=== PATIENT | female | born 1985 | race Caucasian/White ===

== ENCOUNTER 2024-05-31 16:21 | Emergency (ER) | payer BC, SELFPAY ==
--- NOTE | ~2024-05-31 | CT_ITS ---
EXAMINATION: CT abdomen pelvis wo con DATE: 05/31/2024 20:13 INDICATION: Flank pain. TECHNIQUE: Computed tomography (CT) of the abdomen and pelvis was performed without intravenous contr ast. Automated exposure control and iterative reconstruction technique were employed. The dose-length product was 343.36 mGy-cm. COMPARISON: CT abdomen and pelvis 08/10/2010 FINDINGS: The visualized portions of the lung bases are clear without pneumonia or pleural effusion. The heart size is normal. No pericardial effusion. The liver, gallbladder, spleen, pancreas, adrenal glands, and left kidney are normal. There is a 2 mm stone in right kidney. There is a 3.8 cm cyst in left ovary. There are no dilated loops of bowel. The appendix is normal. There are no pathologically enlarged lymph nodes. There is no free intraperitoneal fluid. There is moderate thoracic spondylosis. There is severe lower lumbar spondylosis. IMPRESSION: 1. 2 mm nonobstructing right kidney stone. 2. 3.8 cm cyst in left ovary, likely a follicular cyst. Reviewed, dictated and finalized at location A. P MAT[employer]S [employer]ER
--- NOTE | 2024-05-31 18:41 | ED.FEMALEGU ---
HPI - Female Genitourinary General Chief complaint: Urogenital-Female Stated complaint: possible kidney stone/uti Time Seen by Provider: 05/31/24 18:30 Focused HPI: Patient is a 37-year-old female who presents to the ER with complaints of abdominal pain, back pain, UTI symptoms, inability to empty her bladder for the past 2-3 days. She reports she has history of anemia and takes a weight loss injection medication. Patient reports she has felt feverish. She denies , concern for STDs, chest pain, and shortness of breath. GENERAL: Well-appearing, well-nourished, and in no acute distress. HEAD: Normocephalic, atraumatic. CHEST: Clear to auscultation. ?No respiratory distress. HEART: Regular rate and rhythm.? NEURO: ?Alert and oriented x3. Patient screened in triage and initial orders placed.? ?Additional care and disposition to be based upon?diagnostic testing and treatment. Related Data Allergies Allergy/AdvReac Type Severity Reaction Status Date / Time iodine Allergy Unknown Unverified 06/25/18 14:36 [facility] Family History Family History (Updated 04/04/16 @ 13:39 by DOCTOR UNKNOWN) Father Family history of obesity Social History Social History Smoking status: Former smoker Second hand tobacco smoke exposure: No Smoking end date: 07/24/12 Alcohol intake: never Discharge Plan Discharge Follow-up/Referrals: Renita,Soco Lazaro MD [Primary Care Provider] -
[2024-05-31 19:09] VITALS: BP 130/67; PULSE 92; RESP 15; TEMP 36.5; O2SAT 96
--- NOTE | 2024-05-31 19:11 | ED_ITS ---
HPI - Female Genitourinary General Chief complaint: Urogenital-Female <Willie Mike MD - Last Filed: 05/31/24 19:14> Stated complaint: possible kidney stone/uti <Willie Mike MD - Last Filed: 05/31/24 19:14> Time Seen by Provider: 05/31/24 18:30 <Willie Mike MD - Last Filed: 05/31/24 19:14> Source: patient <Willie Mike MD - Last Filed: 05/31/24 19:14> Mode of arrival: ambulatory <Willie Mike MD - Last Filed: 05/31/24 19:14> Limitations: no limitations <Willie Mike MD - Last Filed: 05/31/24 19:14> History of Present Illness HPI Narrative: 38 year old female here for left flank pain reports of subjective fevers but has not taken her temperature. Started a few days ago. History of kidney stones and UTIs. Thought it might be 1 of those. No abdominal pain <Willie Mike MD - Last Filed: 05/31/24 19:14> Related Data Allergies/Adverse reactions: Allergies Allergy/AdvReac Type Severity Reaction Status Date / Time iodine Allergy Unknown Rash Verified 05/31/24 19:11 <Willie Mike MD - Last Filed: 05/31/24 19:14> Review of Systems Review of Systems: All systems reviewed & are unremarkable except as noted in HPI and below <Willie Mike MD - Last Filed: 05/31/24 19:14> [facility] Past Medical History Medical History: Medical History (Updated 06/01/24 @ 00:53 by Glen Lang MD) Morbid obesity <Willie Mike MD - Last Filed: 05/31/24 19:14> Family History Family History: Family History Father Family history of obesity <Willie Mike MD - Last Filed: 05/31/24 19:14> Social History Social History: Social History Smoking status: Former smoker Second hand tobacco smoke exposure: No Smoking end date: 07/24/12 Alcohol intake: never <Willie Mike MD - Last Filed: 05/31/24 19:14> Exam Narrative: Constitutional: Generally well appearing, no acute distress Head: Atraumatic, no deformities. Eyes: Pupils equal, round, and reactive to light. Neck: Supple, no tracheal deviation, no JVD. ENMT: Mucous membranes moist Cardiovascular: S1, S2 auscultated. No murmurs, rubs, or gallops. No S3/S4. Normal Distal pulses. No peripheral edema. Respiratory: Lung sounds equal. No wheezes, rales, or rhonchi. Gastrointestinal: Abdomen was soft and non-tender. Non-distended. No rebound or guarding. Mild tenderness in the left CVA area Genitourinary: Deferred Musculoskeletal: Normal muscle tone and bulk. No obvious deformities or tenderness over extremities. Skin: No rashes. Neurological: Strength 5/5 in extremities. Cranial nerves I-XII grossly intact. Distal sensation intact. Mental Status: Awake, alert and oriented x3. Follows commands <Willie Mike MD - Last Filed: 05/31/24 19:14> Course Course Emergency Course: 22:30 - This patient was signed out to me by previous ED physician, Dr. Mike pending CT abdomen pelvis to rule out stone. 00:30 - STAT Rad interpretation of CT abdomen pelvis demonstrates There is a punctate right renal calcification. No left renal calcifications are noted. No evidence of hydronephrosis. Unremarkable CT scan appearance noted the appendix. No calcified gallstones are seen. There is a possible 4.5 cm left adnexal c yst. UA demonstrates trace ketones with 0-2 rbc's but is not concerning for urinary tract infection. Chemistries demonstrate mildly elevated total bilirubin of 1.4 but is otherwise unremarkable. CBC unremarkable. I suspect the patient's pain may be related to passage of a stone. Will discharge with recommendation for primary care and Urology follow-up. The patient requests a refill of her QSymia. 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 Acute withdrawal of this medication can increase risks of seizures. Will provide the patient with a prescription and at a separate pharmacy. <Glen Lang MD - Last Filed: 06/01/24 00:54> Vital Signs Vital signs: Vital Signs Temperature 97.7 F 05/31/24 19:09 Pulse Rate 92 05/31/24 19:09 Respiratory Rate 15 05/31/24 19:09 Blood Pressure 130/67 05/31/24 19:09 Pulse Oximetry 96 05/31/24 19:09 Temperature 97.8 F 05/31/24 22:34 Pulse Rate 71 05/31/24 22:34 Respiratory Rate 15 05/31/24 22:34 Blood Pressure 121/70 05/31/24 22:34 Pulse Oximetry 100 05/31/24 22:34 <Willie Mike MD - Last Filed: 05/31/24 19:14> Vital Signs Temperature 97.7 F 05/31/24 19:09 Pulse Rate 92 05/31/24 19:09 Respiratory Rate 15 05/31/24 19:09 Blood Pressure 130/67 05/31/24 19:09 Pulse Oximetry 96 05/31/24 19:09 Temperature 97.8 F 05/31/24 22:34 Pulse Rate 71 05/31/24 22:34 Respiratory Rate 15 05/31/24 22:34 Blood Pressure 121/70 05/31/24 22:34 Pulse Oximetry 100 05/31/24 22:34 <Glen Lang MD - Last Filed: 06/01/24 00:54> MDM - Female Genitourinary MDM Narrative Medical decision making narrative: 38-year-old here with left flank pain, urinary frequency and concern for UTI. Exam shows mild tenderness left CVA region. Obtaining CT abdomen pelvis, basic laboratory. concern for UTI or kidney stone. <Willie Mike MD - Last Filed: 05/31/24 19:14> Lab Data Result diagrams: 05/31/24 19:24 05/31/24 19:24 <Willie Mike MD - Last Filed: 05/31/24 19:14> Labs: Lab Results 05/31/24 05/31/24 Range/Units 19:24 19:29 WBC 9.1 (4.5-10.0) K/mm3 RBC 4.86 (4.2-5.4) M/mm3 Hgb 13.7 (12.0-15.0) g/dL Hct 41.3 (37.0-47.0) % MCV 85.0 (80-100) fl MCH 28.2 (26-34) pg MCHC 33.2 (32-36) g/dl RDW 14.2 (11.5-14.5) % Plt Count 269 (150-375) k/mm3 MPV 9.3 (7.4-10.4) fl Immature Gran % (Auto) 0.3 (0-0.5) % Neut % (Auto) 72.5 (45.5-73.1) % Lymph % (Auto) 18.6 (18.3-44.2) % [place] % (Auto) 7.2 (2.6-8.5) % Eos % (Auto) 0.8 (0-4.4) % Baso % (Auto) 0.6 (0.2-1.2) % Lymph # (Auto) 1.68 (0.9-3.2) K/mm3 [place] # (Auto) 0.7 H (0.1-0.6) K/mm3 Eos # (Auto) 0.1 (0-0.3) K/mm3 Baso # (Auto) 0.1 (0.0-0.1) K/mm3 Abs Immat Gran (auto) 0.03 (0.00-0.031) K/mm3 Absolute Neuts (auto) 6.6 (1.3-6.7) K/mm3 Absolute Nucleated RBC 0.000 (0.0-0.012) K/mm3 Nucleated RBC % 0.0 (0.0-0.2) % PT 14.5 (11.1-14.7) Seconds INR 1.1 APTT 28.1 (22.3-36.8) Seconds Sodium 135 L (137-145) mmol/L Potassium 3.5 (3.4-5.0) mmol/L Chloride 106 (98-107) mmol/L Carbon Dioxide 24 (22-30) mmol/L Anion Gap 5 (4-12) mmol/L BUN 6 L (7-17) mg/dL Creatinine 0.70 (0.7-1.0) mg/dL Estim Creat Clear Calc 105 ml/min Estimated GFR > 60 (59 - ) Glucose 83 (65-110) mg/dL Lactic Acid 0.7 (0.7-2.0) mmol/L Calcium 9.5 (8.4-10.2) mg/dL Total Bilirubin 1.4 H (0.2-1.3) mg/dL AST 29 (14-36) U/L ALT 22 (6-35) U/L Alkaline Phosphatase 73 (38-126) U/L Troponin I < 0.012 (0.000-0.034) ng/mL Total Protein 7.0 (6.3-8.2) g/dL Albumin 4.4 (3.5-5.1) g/dL Lipase 96 (23-300) U/L Urine Color Yellow (Yellow) Urine Appearance Clear (Clear) Urine pH 6.0 (5.0-9.0) Ur Specific [place] 1.004 (1.001-1.035) Urine Protein Negative (Negative) mg/dL Urine Glucose (UA) Negative (Negative) mg/dL Urine Ketones Trace H (Negative) mg/dL Ur Blood (Man) Trace (Negative) Urine Nitrate Negative (Negative) Urine Bilirubin Negative (Negative) Urine Urobilinogen 0.2 (<2.0) mg/dL Leukocyte Esterase Rfl Negative (Negative) NADJA/UL Urine RBC 0-2 (0-2) /hpf Urine WBC 0-5 (0-3) /hpf Ur Squamous Epith Cells None seen (Few) /hpf Urine Bacteria None seen /hpf Urine Casts 0-2 POC Urine HCG, Qual Negative (Negative) <Willie Mike MD - Last Filed: 05/31/24 19:14> Lab Results 05/31/24 05/31/24 Range/Units 19:24 19:29 WBC 9.1 (4.5-10.0) K/mm3 RBC 4.86 (4.2-5.4) M/mm3 Hgb 13.7 (12.0-15.0) g/dL Hct 41.3 (37.0-47.0) % MCV 85.0 (80-100) fl MCH 28.2 (26-34) pg MCHC 33.2 (32-36) g/dl RDW 14.2 (11.5-14.5) % Plt Count 269 (150-375) k/mm3 MPV 9.3 (7.4-10.4) fl Immature Gran % (Auto) 0.3 (0-0.5) % Neut % (Auto) 72.5 (45.5-73.1) % Lymph % (Auto) 18.6 (18.3-44.2) % [place] % (Auto) 7.2 (2.6-8.5) % Eos % (Auto) 0.8 (0-4.4) % Baso % (Auto) 0.6 (0.2-1.2) % Lymph # (Auto) 1.68 (0.9-3.2) K/mm3 [place] # (Auto) 0.7 H (0.1-0.6) K/mm3 Eos # (Auto) 0.1 (0-0.3) K/mm3 Baso # (Auto) 0.1 (0.0-0.1) K/mm3 Abs Immat Gran (auto) 0.03 (0.00-0.031) K/mm3 Absolute Neuts (auto) 6.6 (1.3-6.7) K/mm3 Absolute Nucleated RBC 0.000 (0.0-0.012) K/mm3 Nucleated RBC % 0.0 (0.0-0.2) % PT 14.5 (11.1-14.7) Seconds INR 1.1 APTT 28.1 (22.3-36.8) Seconds Sodium 135 L (137-145) mmol/L Potassium 3.5 (3.4-5.0) mmol/L Chloride 106 (98-107) mmol/L Carbon Dioxide 24 (22-30) mmol/L Anion Gap 5 (4-12) mmol/L BUN 6 L (7-17) mg/dL Creatinine 0.70 (0.7-1.0) mg/dL Estim Creat Clear Calc 105 ml/min Estimated GFR > 60 (59 - ) Glucose 83 (65-110) mg/dL Lactic Acid 0.7 (0.7-2.0) mmol/L Calcium 9.5 (8.4-10.2) mg/dL Total Bilirubin 1.4 H (0.2-1.3) mg/dL AST 29 (14-36) U/L ALT 22 (6-35) U/L Alkaline Phosphatase 73 (38-126) U/L Troponin I < 0.012 (0.000-0.034) ng/mL Total Protein 7.0 (6.3-8.2) g/dL Albumin 4.4 (3.5-5.1) g/dL Lipase 96 (23-300) U/L Urine Color Yellow (Yellow) Urine Appearance Clear (Clear) Urine pH 6.0 (5.0-9.0) Ur Specific [place] 1.004 (1.001-1.035) Urine Protein Negative (Negative) mg/dL Urine Glucose (UA) Negative (Negative) mg/dL Urine Ketones Trace H (Negative) mg/dL Ur Blood (Man) Trace (Negative) Urine Nitrate Negative (Negative) Urine Bilirubin Negative (Negative) Urine Urobilinogen 0.2 (<2.0) mg/dL Leukocyte Esterase Rfl Negative (Negative) NADJA/UL Urine RBC 0-2 (0-2) /hpf Urine WBC 0-5 (0-3) /hpf Ur Squamous Epith Cells None seen (Few) /hpf Urine Bacteria None seen /hpf Urine Casts 0-2 POC Urine HCG, Qual Negative (Negative) <Glen Lang MD - Last Filed: 06/01/24 00:54> Discharge Plan Discharge Clinical Impression: Acute abdominal pain in left flank, Nephrolithiasis <Willie Mike MD - Last Filed: 05/31/24 19:14> Patient Disposition: Home, Self-Care <Willie Mike MD - Last Filed: 05/31/24 19:14> Condition: Stable <Willie Mike MD - Last Filed: 05/31/24 19:14> Instructions: Antibiotic Form, Kidney Stones (ED), Flank Pain (ED) <Willie Mike MD - Last Filed: 05/31/24 19:14> Additional Instructions: You were seen in the emergency department. Your lab shows changes consistent with passage of a kidney stone. A CT scan did not show 1 left, however there is a tiny stone noted in the right kidney. I recommend Tylenol/ ibuprofen as needed for pain as well as follow-up with your primary care doctor. If you develop new or worsening abdominal pain, abdominal pain with fevers, persistent vomiting, or if you have other emergent concerns for life, limb, or eyesight, return to the emergency department. <Willie Mike MD - Last Filed: 05/31/24 19:14> Patient Language: Turkish <Willie Mike MD - Last Filed: 05/31/24 19:14> Prescriptions: New Qsymia 7.5-46 mg capsule, ER multiphase 24 hr 1 cap PO DAILY Qty: 30 0RF <Willie Mike MD - Last Filed: 05/31/24 19:14> Follow-up/Referrals: Suleimanjacey,Soco Lazaro MD [Non-Staff] - 2 Weeks Alan Fermin MD [Physician] - 2 Weeks <Willie Mike MD - Last Filed: 05/31/24 19:14> Time of Disposition: 00:53 <Willie Mike MD - Last Filed: 05/31/24 19:14> 00:53 <Glen Lang MD - Last Filed: 06/01/24 00:54> Sign Out Sign Out Data: Patient Sign Out occurred on 05/31/24 at 22:21. Patient's care was discussed, and care was transferred from Willie Mike MD to Glen Lang MD. <Willie Mike MD - Last Filed: 05/31/24 19:14>
[2024-05-31] MEDS: SODIUM CHLORIDE 0.9% IV 1,000 ML 999 ML IV CONT (19:17)
[2024-05-31] MEDS: KETOROLAC 30 MG/ML VIAL (*BKC) IV PUSH (19:18)
[2024-05-31 19:31] LABS: BEDSIDEPREGUCG Negative (Negative)
[2024-05-31 19:35] LABS: Basophils Absolute Auto 0.1 K/mm3 (0.0-0.1); Basophils Percent Auto 0.6 % (0.2-1.2); Eosinophils Absolute Auto 0.1 K/mm3 (0-0.3); Eosinophils Percent Auto 0.8 % (0-4.4); Hematocrit 41.3 % (37.0-47.0); Hemoglobin 13.7 g/dL (12.0-15.0); Immature Granulocyte Absolute 0.03 K/mm3 (0.00-0.031); Immature Granulocyte Percent A 0.3 % (0-0.5); Lymphocytes Absolute Auto 1.68 K/mm3 (0.9-3.2); Lymphocytes Percent Auto 18.6 % (18.3-44.2); Mean Corpuscular HGB Conc 33.2 g/dl (32-36); Mean Corpuscular Hemoglobin 28.2 pg (26-34); Mean Platelet Volume 9.3 fl (7.4-10.4); Monocytes Absolute Auto 0.7 K/mm3 (0.1-0.6); Monocytes Percent Auto 7.2 % (2.6-8.5); Neutrophils Absolute Auto 6.6 K/mm3 (1.3-6.7); Neutrophils Percent Auto 72.5 % (45.5-73.1); Platelet Count Result 269 k/mm3 (150-375); Red Blood Count 4.86 M/mm3 (4.2-5.4); Red Cell Distribution Width 14.2 % (11.5-14.5); White Blood Count 9.1 K/mm3 (4.5-10.0)
[2024-05-31 19:39] LABS: Add Urine Microscopic? YES; Appearance Urine Clear (Clear); Bacteria Urine None Seen /hpf; Bilirubin Urine Negative (Negative); Blood Urine Trace (Negative); Color Urine Yellow (Yellow); Glucose Urine UA Negative (Negative); Ketones Urine Trace mg/dL (Negative); Leukocyte Esterase Ur Negative LEU/UL (Negative); Nitrate Urine Negative (Negative); Non Pathogenic Casts 0-2; Protein Urine Negative (Negative); RBC Urine 0-2 /hpf (0-2); Specific Grav Ur 1.004 (1.001-1.035); Squamous Epithelial Cell Urine None Seen /hpf (Few); Urobilinogen Urine 0.2 mg/dL (<2.0); WBC Urine 0-5 /hpf (0-3)
[2024-05-31 19:43] LABS: Alanine Aminotransferase 22 U/L (6-35); Albumin Level 4.4 g/dL (3.5-5.1); Alkaline Phosphatase 73 U/L (38-126); Anion Gap 5 mmol/L (4-12); Aspartate Amino Transferase 29 U/L (14-36); Bilirubin,Total 1.4 mg/dL (0.2-1.3); Blood Urea Nitrogen 6 mg/dL (7-17); Calcium 9.5 mg/dL (8.4-10.2); Carbon Dioxide 24 mmol/L (22-30); Chloride 106 mmol/L (98-107); Estimated CRCL calculation 105 ml/min; Estimated Glomerular Filt Rate > 60; Glucose 83 mg/dL (65-110); INR 1.1; Lipase 96 U/L (23-300); Potassium 3.5 mmol/L (3.4-5.0); Prothrombin Time 14.5 Seconds (11.1-14.7); Sodium 135 mmol/L (137-145)
[2024-05-31 19:44] LABS: Lactic Acid Reflex 0.7 mmol/L (0.7-2.0); Partial Thromboplastin Time 28.1 Seconds (22.3-36.8)
[2024-05-31 20:14] LABS: Troponin I < 0.012 ng/mL (0.000-0.034)
[2024-05-31 20:57] VITALS: BP 124/86; PULSE 88; RESP 18; O2SAT 99
[2024-05-31 22:34] VITALS: BP 121/70; PULSE 71; RESP 15; TEMP 36.6; O2SAT 100
[2024-06-01 01:13] VITALS: BP 126/74; PULSE 69; RESP 16; O2SAT 98
== END 2024-06-01 01:13 | disposition home or self-care (01) ==
PROVIDERS: Registered Nurse; Emergency Provider Preventive Medicine Aerospace Medicine
DX: R10.9 Unspecified abdominal pain (principal); N20.0 Calculus of kidney; Z87.891 Personal history of nicotine dependence; E66.9 Obesity, unspecified; Z68.33 Body mass index [BMI] 33.0-33.9, adult
CPT/HCPCS: 36415; 74176; 80053; 81001; 81025; 83605; 83690; 84484; 85025; 85610; 85730; 96361; 96374; 99284; J1885; J7030

== ENCOUNTER 2024-10-10 09:05 | Outpatient (CLI) | payer BC, SELFPAY ==
--- OUTSIDE RECORDS SUMMARY | 2024-10-10 09:26 | XMS_ITS | Clinical Summary ---
Author Organization [facility] [employer] Address [address] [address] Care Team Providers Care Forming Yardage Control Operator Name Role Phone Tamanna Reza APRN-SUPPLIER SPECIALIST Primary Care Provider Source Comments [facility] [employer],non-owned Affiliates and Associated Physician Practices is amultiple site organization consisting of ambulatory clinics and hospital sitesin [place], [place], [place] and [place]. This disclosure is being madepursuant to the Care Everywhere program and may not contain all information available regarding this patient. Last updated 18.[facility] [employer] Allergies No known active allergies Medications * Be aware that medications may not be up to date on this document. Alwaysverify current medications with the patient. Medication Sig Dispensed Refills Start Date End Date Status sertraline (ZOLOFT) 50 MG tablet 75 mg 05/31/2021 Active etonogestrel (NEXPLANON) 68 MG implant Active Family History Medical History Relation Name Comments Cancer - Breast Paternal Grandmother Cancer - Breast Sister Relation Name Status Comments Paternal Grandmother Sister Social History Tobacco Use Types Packs/Day Years Used Date Smoking Tobacco: Never Assessed Sex and Gender Information Value Date Recorded Sex Assigned at Not on file Gender Identity Not on file Sexual Orientation Not on file Last Filed Vital Signs Vital Sign Reading Time Taken Comments Blood Pressure - - Pulse - - Temperature 36.8 C (98.2 F) 07/01/2021 1:01 PM CIVIL ESTIMATOR Respiratory Rate - - Oxygen Saturation - - Inhaled Oxygen Concentration - - Weight - - Height - - Body Mass Index - - Plan of Treatment Health Maintenance Due Date Last Done Comments PAP SMEAR 1985 HIV SCREENING 2000 DTAP/TDAP/TD VACCINES (1 - Tdap) 2004 HEPATITIS B VACCINE (1 of 3 - 19+ 3-dose series) 2004 COVID-19 VACCINE (1 - 2023-2 5 season) 2024 INFLUENZA VACCINE (#1) 2024 , 07/09/2021, 05/13/2018 DEPRESSION SCREENING 07/24/2024 ZOSTER VACCINE (1 of 2) 2035 HEPATITIS C SCREENING Completed 09/13/2022 HIB VACCINE Aged Out No longer eligi ble based on patient's age to complete this topic HPV VACCINE Aged Out No longer eligi ble based on patient's age to complete this topic MENINGOCOCCAL (Group B) VACCINE SHARED DECISION-MAKING Aged Out No longer eligible based on patient's age to complete this topic MENINGOCOCCAL GROUPS A/C/Y/W VACCINE Aged Out No longer eligible b ased on patient's age to complete this topic PNEUMOCOCCAL VACCINE Aged Out No long er eligible based on patient's age to complete this topic Care Teams Forming Yardage Control Operator Relationship Specialty Start Date End Date Tamanna Reza, SALES ENABLEMENT MANAGER-SUPPLIER SPECIALIST [address] [place] [id number] PCP - General Nurse Practitioner 05/19/21
--- OUTSIDE RECORDS SUMMARY | 2024-10-10 09:26 | XMS_ITS | Clinical Summary ---
Author Organization [facility] [place] Address [address] [place] [address] Phone Care Team Providers Care Theatre Professor Name Role Phone Unavailable Primary Care Provider Unavailabl e Social History Tobacco Use Types Packs/Day Years Used Date Smoking Tobacco: Never Assessed Comments Unknown Sex and Gender Information Value Date Recorded Sex Assigned at Not on file Legal Sex Female 3:21 PM CDT Gender Identity Not on file Sexual Orientation Not on file Plan of Treatment Health Maintenance Due Date Last Done Comments DTAP/TDAP/TD VACCINES (1 - Tdap) 2004 HEPATITIS B VACCINES (1 of 3 - 19+ 3-dose series) 2004 PAP SMEAR 2015 INFLUENZA VACCINE (#1) 2024 HPV VACCINES Aged Out No longer eligi ble based on patient's age to complete this topic PNEUMOCOCCAL VACCINE 0-49 YEARS Aged Out No longer eligible based on patient's age to complete this topic
--- OUTSIDE RECORDS SUMMARY | 2024-10-10 09:26 | XMS_ITS | Clinical Summary ---
Author Organization [facility] Address [address] [place] [address] Care Team Providers Care Waterfront Director Name Role Phone Tamanna Reza Primary Care Provider [phone] Allergies No known active allergies Medications spironolactone (ALDACTONE) 100 MG tablet 4 Active tretinoin (RETIN-A) 0.025 % cream APPLY TOPICALLY TO ACNE PRONE AREAS EVERY EVENING 3 Active busPIRone (BUSPAR) 10 MG tabletIndicatio ns:Anxiety Take one half tablet once daily for one week, then increase to one tablet twice daily 60 tablet 5 4 Active sertraline (ZOLOFT) 100 MG tabletIndicatio ns:Anxiety,Mode rate episode of recurrent major depressive disorder (CMS/HCC) Take 1 tablet (100 mg total) by mouth daily. 90 tablet 1 4 Active hydrOXYzine (ATARAX) 25 MG tabletIndicatio ns:Anxiety TAKE ONE TABLET BY MOUTH DAILY 30 tablet 4 Active Active Problems Problem Noted Date Diagnosed Date Anxiety 04/28/2021 Moderate episode of recurrent major depressive d isorder 04/28/2021 Resolved Problems Problem Noted Date Diagnosed Date Resolved Date BMI 39.0-39.9,adult 04/28/2021 09/01/19 23 Encounters Date Type Department Care Team Description 08/15/2024 MyChart Message Enc [facility] Family & Internal Medicine [address] [phone] Tamanna Reza APNP Buspar and hydrozizine from Last 3 Months Immunizations Name Administration Dates Next Due Fluzone 6 Months+ Quad (0.5 mL Prefilled Syringe ) 09/01/2022 Influenza Adult (Generic) 07/09/2021,05/13/2018 Tdap (Adacel) 03/21/2015 Tdap (Boostrix) 05/13/2018 Family History Medical History Relation Comments Anxiety Mother Depression Mother Hyperlipidemia Mother Hypertension Mother Thyroid Disease Mother Breast Cancer Sister age 44 Relation Status Comments Father Alive Mother Alive Sister Social History Tobacco Use Types Packs/Day Years Used Date Smoking Tobacco: Never Passive Smoke Exposure: Past Smokeless Tobacco: Never Tobacco Cessation:Counseling Given: No Alcohol Use Standard Drinks/Week Comments Never 0 (1 standard drink = 0.6 oz pur e alcohol) PHQ-2 Answer Date Recorded Patient Health Questionnaire-2 Score 3 10/17/2023 Comments No Sex and Gender Information Value Date Recorded Sex Assigned at Not on file Legal Sex Female 9:44 AM CDT Gender Identity Not on file Sexual Orientation Not on file Last Filed Vital Signs Vital Sign Reading Time Taken Comments Blood Pressure 102/80 06/11/2024 4:18 PM LOG DRIVER Pulse 86 06/11/2024 4:18 PM LOG DRIVER Temperature 36.7 C (98 F) 06/11/2024 4:18 PM LOG DRIVER Respiratory Rate 16 06/11/2024 4:18 PM LOG DRIVER Oxygen Saturation 99% 06/11/2024 4:18 PM LOG DRIVER Inhaled Oxygen Concentration - - Weight 91.6 kg (201 lb 14.4 oz) 06/11/2024 4:18 PM LOG DRIVER Height 165.1 cm (5' 5 ) 06/11/2024 4:18 PM LOG DRIVER Body Mass Index 33.6 06/11/2024 4:18 PM LOG DRIVER Plan of Treatment Health Maintenance Due Date Last Done Comments Cervical Cancer Screening Pa p Smear (Age 30 to 64) Every 3 Years 1985 Hepatitis B Vaccines (1 of - + 3-dose series) 2004 Cervical Cancer Screening Pa p with HPV Testing (Age 30 to 64) Every 5 Years 2015 COVID-19 Vaccine (2023-2 5 season) 2024 07/09/2021, 10/17/2020, 09/24/2020 Influenza Adult (#1) 2024 09/01/2022, 07/09/2021, 05/13/2018 PHQ-2 (Physician [place]) 07/24/2024 10/17/2023 Annual Physical 10/16/2024 10/17/2023, 09/01/2022 Cervical Cancer Screening with HPV 10/16/2024 Postponed from 09/09 (Awaiting Documentation) DTaP, Tdap and Td Vaccines ( 3 - Td or Tdap) 05/13/2028 05/13/2018, 03/21/2015 Hepatitis C Completed 09/13/2022 HPV Vaccines Aged Out No longer eligi ble based on patient's age to complete this topic Meningococcal B Vaccine Aged Out No l onger eligible based on patient's age to complete this topic Meningococcal Vaccine Aged Out No jamil anant eligible based on patient's age to complete this topic Pneumococcal Vaccine: Pediatrics (0 to 5 Years) and At-Risk Patients (6 to 64 Years) Aged Out No longer eligible b ased on patient's age to complete this topic RSV Immunizations Under 20 Months Aged Out No longer eligible b ased on patient's age to complete this topic Procedures Procedure Name Priority Date/Time Associated Diagnosis Comments HEPATITIS C ANTIBODY Routine 09/13/2022 10:14 AM LOG DRIVER Need for hepatitis C screening test from Last 3 Months or Most Recently Relevant to Health Maintenance Results * HEPATITIS C AB ([facility] ONLY) (09/13/2022 10:14 AM LOG DRIVER) HEPATITIS C AB NON-REACTI VE NON-REACT GLORIA 09/13/2022 6:29 PM LOG DRIVER [facility] Comment: ANTIBODIES TO HCV NOT DETECTED. DOES NOT EXCLUDE THE POSSIBILITY OF EXPOSURE TO HCV. 09/13/2022 10:1 4 AM LOG DRIVER Tamanna [facility] Final Resul t [facility] [address] [place] [address], [id number] from Last 3 Months or Most Recently Relevant to Health Maintenance Insurance [facility] Care Teams Waterfront Director Relationship Specialty Start Date End Date Tamanna Reza APNP [address] [place] [address] PCP - General NURSE PRACTITIONER 04/28/21
--- OUTSIDE RECORDS SUMMARY | 2024-10-10 09:27 | XMS_ITS | Encounter Summary ---
Author Organization [facility] Address [address] [place] [address] Care Team Providers Care Second Miller Name Role Phone Tamanna Reza Primary Care Provider [phone] Encounter Details Date Type Department Care Team (Late st Contact Info) Description 02/22/2024 Authernativet Message Enc [facility] Family Medicine - [place] [address] [facility], [address] [place] [phone] [place] [address] [address] Qsymia Social History Tobacco Use Types Packs/Day Years Used Date Smoking Tobacco: Never Passive Smoke Exposure: Past Smokeless Tobacco: Never Alcohol Use Standard Drinks/Week Comments Never 0 (1 standard drink = 0.6 oz pur e alcohol) PHQ-2 Answer Date Recorded Patient Health Questionnaire-2 Score 3 10/17/2023 Comments No Sex and Gender Information Value Date Recorded Sex Assigned at Not on file Legal Sex Female 9:44 AM CDT Gender Identity Not on file Sexual Orientation Not on file documented as of this encounter Plan of Treatment Not on file documented as of this encounter Visit Diagnoses Not on filedocumented in this encounter Additional Health Concerns Assessment Noted Time PHQ-9 Depression Total Score: 10 024 8:32 AM CDT documented as of this encounter Care Teams Second Miller Relationship Specialty Start Date End Date Tamanna Reza APNP [address] [place] [address] PCP - General NURSE PRACTITIONER 04/28/21 documented as of this encounter
--- OUTSIDE RECORDS SUMMARY | 2024-10-10 09:27 | XMS_ITS | Encounter Summary ---
Author Organization [facility] Address [address] [place] [address] Care Team Providers Care Network Specialist Name Role Phone Tamanna Reza Primary Care Provider [phone] Encounter Details Date Type Department Care Team (Late st Contact Info) Description 06/03/2024 goActt Message Enc [facility] Family Medicine - [place] [address] [facility], [address] [place] [phone] [place] [address] [address] Medication and kidney stones Social History Tobacco Use Types Packs/Day Years [...] documented as of this encounter Care Teams Network Specialist Relationship Specialty Start Date End Date Tamanna Reza APNP [address] [place] [address] PCP - General NURSE PRACTITIONER 04/28/21 documented as of this encounter
--- OUTSIDE RECORDS SUMMARY | 2024-10-10 09:27 | XMS_ITS | Encounter Summary ---
Author Organization [facility] Address [address] [place] [address] Care Team Providers Care Accredited Farm Manager Name Role Phone Tamanna Reza Primary Care Provider [phone] Encounter Details Date Type Department Care Team (Late st Contact Info) Description 04/16/2024 TNCt Message Enc [facility] Family Medicine - [place] [address] [facility], [address] [place] [phone] [place] [address] [address] Qysmia Social History Tobacco Use Types Packs/Day Years [...] documented as of this encounter Care Teams Accredited Farm Manager Relationship Specialty Start Date End Date Tamanna Reza APNP [address] [place] [address] PCP - General NURSE PRACTITIONER 04/28/21 documented as of this encounter
--- OUTSIDE RECORDS SUMMARY | 2024-10-10 09:27 | XMS_ITS | Encounter Summary ---
Author Organization [facility] Address [address] [place] [address] Care Team Providers Care Computer Information Systems Instructor Name Role Phone Tamanna Reza BILL Primary Care Provider [phone] Encounter Details Date Type Department Care Team (Late st Contact Info) Description 05/29/2024 Vidmindt Message Enc [facility] Family Medicine - [place] [address] [facility], [address] [place] [phone] [place] [address] [address] Appt today Social History Tobacco Use Types Packs/Day Years [...] on file documented as of this encounter Progress Notes * Marga Gonzalez MA - 05/30/2024 2:30 PM CST Called patient and scheduled for 06/05/2024 @ 10:20 for virtual visit. Patient is needing a refill on Qsymia GANG SUPERVISOR documented in this encounter Plan of Treatment Not on file documented as of this encounter Visit Diagnoses Diagnosis Class 2 severe obesity due to excess calories with serious comorbidity and body mass index (BMI) of 39.0 to 39.9 in adult (CMS/[facility]) documented in this encounter Additional Health Concerns Assessment Noted Time PHQ-9 Depression Total Score: 10 024 8:32 AM CDT documented as of this encounter Care Teams Computer Information Systems Instructor Relationship Specialty Start Date End Date Tamanna Reza APNP [address] [place] [address] PCP - General NURSE PRACTITIONER 04/28/21 documented as of this encounter
--- OUTSIDE RECORDS SUMMARY | 2024-10-10 09:27 | XMS_ITS | Encounter Summary ---
Author Organization [facility] Address [address] [place] [address] Care Team Providers Care Telegraph Service Rater Name Role Phone Tamanna Reza BILL Primary Care Provider [phone] Encounter Details Date Type Department Care Team (Late st Contact Info) Description 03/21/2024 Playnatic Entertainmentt Message Enc [facility] Family Medicine - [place] [address] [facility], [address] [place] [phone] [place] [address] [place] [address] Qsymia Social History Tobacco Use Types Packs/Day [...] as of this encounter Progress Notes * Anaid Jovel MA - 03/26/2024 8:08 AM CDTFrom: Candy Luis Enrique Sent: 03/25/2024 9:54 AM CDT To: Marissa Siddiqui Nurse Subject: Qsymia Please send scrip to Mike Guevara documented in this encounter Plan of Treatment Not on file documented as of this encounter Visit Diagnoses Not on filedocumented in this encounter Additional Health Concerns Assessment Noted Time PHQ-9 Depression Total Score: 10 024 8:32 AM CDT documented as of this encounter Care Teams Telegraph Service Rater Relationship Specialty Start Date End Date Tamanna Reza APNP [address] [place] [address] PCP - General NURSE PRACTITIONER 04/28/21 documented as of this encounter
--- OUTSIDE RECORDS SUMMARY | 2024-10-10 09:27 | XMS_ITS | Encounter Summary ---
Author Organization [facility] Address [address] [place] [address] Care Team Providers Care Furnace Filler Name Role Phone Tamanna Reza Primary Care Provider [phone] Encounter Details Date Type Department Care Team (Late st Contact Info) Description 12/05/2023 SetJamt Message Enc [facility] Family Medicine - [place] [address] [facility], [address] [place] [phone] [place] [address] [address] Qsymia Social History Tobacco Use Types Packs/Day [...] documented as of this encounter Care Teams Furnace Filler Relationship Specialty Start Date End Date Tamanna Reza APNP [address] [place] [address] PCP - General NURSE PRACTITIONER 04/28/21 documented as of this encounter
[2024-10-10 09:30] LABS: Hematocrit 41.6 % (37.0-47.0); Hemoglobin 13.5 g/dL (12.0-15.0)
== END 2024-10-10 09:06 | disposition home or self-care (01) ==
LOC: ANHSURGERY 09:08
PROVIDERS: PCP Registered Nurse; Visit Provider Obstetrics & Gynecology
DX: Z01.818 Encounter for other preprocedural examination (principal); O02.1 Missed abortion
CPT/HCPCS: 36415; 85014; 85018

== ENCOUNTER 2024-10-11 00:14 | Day surgery (SDC) | payer BC, SELFPAY ==
--- NOTE | 2024-10-08 12:56 | PM.IMHP ---
H&P: HPI History of Present Illness Date/Time: 10/08/24 12:56 Chief Complaint: 1st trimester missed A/B Narrative: 39-year-old female 1st trimester with a missed A/B submitted for suction dilatation curettage risks and benefits reviewed in full Review of Systems Review of Systems: All systems reviewed & are unremarkable except as noted in HPI and below PMFSH Past Medical History Medical History Morbid obesity Family History Family History Father Family history of obesity Social History Social History Smoking status: Former smoker Second hand tobacco smoke exposure: No Smoking end date: 07/24/12 Alcohol intake: never Meds Home Medications and Allergies Home Medications ?Medication ?Instructions ?Recorded ?Confirmed ?Type phentermine 7.5 mg-topiramate ER 1 cap PO DAILY #30 caps 06/01/24 Rx 46 mg capsule,ext.release 24hr mphase (Qsymia) Allergies Allergy/AdvReac Type Severity Reaction Status Date / Time iodine Allergy Unknown Rash Verified 05/31/24 19:11 Exam Const: General: cooperative, healthy appearing and comfortable Nutritional Appearance: average body habitus Orientation/consciousness: oriented to person, oriented to place and oriented to time HENMT: Head: normal to inspection Chest: Chest palpation & inspection: normal inspection of the chest Resp: Effort & Inspection: normal respiratory effort Cardio: Rate: regular rate Rhythm: regular rhythm Heart sounds: S1 normal heart sound present and S2 normal heart sound present GI: Inspection: normal to inspection : External Female Exam: normal external appearance Speculum Exam - Vagina: normal appearance of the vagina Speculum Exam - Cervix: normal appearance of the cervix Bimanual exam- vagina & uterus: enlarged Bimanual Exam- Adnexa, other: normal adnexae Assessment and Plan Assessment and plan (1) Missed : Code(s): O02.1 - Missed Status: Acute Plan Proceed with suction dilatation and curettage
[2024-10-08 13:59] VITALS: BMI 34.0
--- NOTE | 2024-10-08 14:15 | PC.NURSE ---
Report to the Outpatient Waiting Room, entrance under the green pavilion located off [facility], at time 1100 on date 10/11/2024. Planned Procedure Time:1300.? Time changes happen often and if your time is changed the preop area will call you the afternoon before. - You and your visitor will be asked to self-screen and do not enter if you have any COVID symptoms. Please call surgeon if you need to reschedule. - A mask is optional within the hospital at this time. Patients may have clear liquids (water, carbonated beverages, clear teas, apple juice) until 3 hours prior to surgery with a maximum of 20 ounces. - No food from midnight until time of surgery and no smoking, or chewing tobacco (or any form of nicotine). No chewing gum, candy or mints. Take only the following medications with a SIP of water on the morning of surgery: Buspar DO NOT STOP ANY OF YOUR OTHER PRESCRIPTION MEDICATIONS PRIOR TO SURGERY EXCEPT THE FOLLOWING Hold all vitamins and supplements for 3 days per anesthesiologist. Medications to discontinue per physician: N/A Please no make-up, nail pakistani, hairspray, perfume, deodorant, or body powder the day of surgery.? No jewelry (including any body piercings) or valuables the day of surgery, leave them at home.? Please take a shower or bath the night before, or the morning of, surgery with an antibacterial soap.? Wear comfortable, loose fitting clothing.? Children are encouraged to wear pajamas. - Jewelry must be removed prior to entering the operating room.? Rings and piercings that are not removed may be cut off. - The hospital will not accept responsibility for valuables.? - Please leave all valuables, including medications, at home the day of surgery. If you are going home after surgery, a licensed national van truck driver must drive you home.? - NO public transportation without another adult if you receive anesthesia. - We recommend that an adult stay with you for 24 hours following discharge. - We also recommend that you do not drive, make important decision, drink alcoholic beverages, or take any drugs that were not prescribed by your health care provider for at least 24 hours after your discharge time. Follow any additional instructions given to you from your surgeon. Telephone instructions given to ____patient and asked if any additional questions and then verbalized understanding. Patient advised to call surgeon office or pre surgery nurse liaison [phone] if any additional questions.
--- OUTSIDE RECORDS SUMMARY | 2024-10-11 00:17 | XMS_ITS | Clinical Summary ---
Author Organization [facility] Address [address] [place] [address] Care Team Providers Care Linux Admin Name Role Phone Tamanna Reza Primary Care Provider [phone] Allergies No known active allergies Medications spironolactone [...] Care Team Description 08/15/2024 MyChart Message Enc [facility] Family & Internal Medicine [address] [phone] Tamanna Reza APNP Buspar and hydrozizine from [...] Comments Blood Pressure 102/80 06/11/2024 4:18 PM SAFETY TECHNICIAN Pulse 86 06/11/2024 4:18 PM SAFETY TECHNICIAN Temperature 36.7 C (98 F) 06/11/2024 4:18 PM SAFETY TECHNICIAN Respiratory Rate 16 06/11/2024 4:18 PM SAFETY TECHNICIAN Oxygen Saturation 99% 06/11/2024 4:18 PM SAFETY TECHNICIAN Inhaled Oxygen Concentration - - Weight 91.6 kg (201 lb 14.4 oz) 06/11/2024 4:18 PM SAFETY TECHNICIAN Height 165.1 cm (5' 5 ) 06/11/2024 4:18 PM SAFETY TECHNICIAN Body Mass Index 33.6 06/11/2024 4:18 PM SAFETY TECHNICIAN Plan of Treatment Health Maintenance Due Date [...] (#1) 2024 09/01/2022, 07/09/2021, 05/13/2018 PHQ-2 (Physician [place]) 07/24/2024 10/17/2023 Annual Physical 10/16/2024 10/17/2023, 09/01/2022 [...] HEPATITIS C ANTIBODY Routine 09/13/2022 10:14 AM SAFETY TECHNICIAN Need for hepatitis C screening test from Last 3 Months or Most Recently Relevant to Health Maintenance Results * HEPATITIS C AB ([facility] ONLY) (09/13/2022 10:14 AM SAFETY TECHNICIAN) HEPATITIS C AB NON-REACTI VE NON-REACT [place]ORIA 09/13/2022 6:29 PM SAFETY TECHNICIAN [facility] Comment: ANTIBODIES TO HCV NOT DETECTED. DOES NOT EXCLUDE THE POSSIBILITY OF EXPOSURE TO HCV. 09/13/2022 10:1 4 AM SAFETY TECHNICIAN Tamanna [facility] Final Resul t [facility] [address] [place] [address], [id number] from Last 3 Months or Most Recently Relevant to Health Maintenance Insurance [facility] Care Teams Linux Admin Relationship Specialty Start Date End Date Tamanna Reza APNP [address] [place] [address] PCP - General NURSE PRACTITIONER 04/28/21
--- OUTSIDE RECORDS SUMMARY | 2024-10-11 00:17 | XMS_ITS | Encounter Summary ---
Author Organization [facility] Address [address] [place] [address] Care Team Providers Care Purchasing And Fiscal Clerk Name Role Phone Tamanna Reza Primary Care Provider [phone] Encounter Details Date Type Department Care Team (Late st Contact Info) Description 12/05/2023 StoredIQt Message Enc [facility] Family Medicine - [place] [address] [facility], [address] [place] [phone] [place] [address] [address] Qsymia Social History Tobacco Use Types Packs/Day [...] documented as of this encounter Care Teams Purchasing And Fiscal Clerk Relationship Specialty Start Date End Date Tamanna Reza APNP [address] [place] [address] PCP - General NURSE PRACTITIONER 04/28/21 documented as of this encounter
--- OUTSIDE RECORDS SUMMARY | 2024-10-11 00:17 | XMS_ITS | Encounter Summary ---
Author Organization [facility] Address [address] [place] [address] Care Team Providers Care Mine Car Mechanic Name Role Phone Tamanna Reza Primary Care Provider [phone] Encounter Details Date Type Department Care Team (Late st Contact Info) Description 02/22/2024 NewGalexy Servicest Message Enc [facility] Family Medicine - [place] [address] [facility], [address] [place] [phone] [place] [address] [address] Qsymia Social History Tobacco Use Types Packs/Day [...] documented as of this encounter Care Teams Mine Car Mechanic Relationship Specialty Start Date End Date Tamanna Reza APNP [address] [place] [address] PCP - General NURSE PRACTITIONER 04/28/21 documented as of this encounter
--- OUTSIDE RECORDS SUMMARY | 2024-10-11 00:17 | XMS_ITS | Clinical Summary ---
Author Organization [facility] Address [address] [place] [address] Phone Care Team Providers Care Power Originator Name Role Phone Unavailable Primary Care Provider [...]
--- OUTSIDE RECORDS SUMMARY | 2024-10-11 00:17 | XMS_ITS | Clinical Summary ---
Author Organization [facility] [employer] [facility] [employer] Address [address] [place] [address] Care Team Providers Care Db2 Developer Name Role Phone Tamanna Reza APRN-TRANSCRIPTION COORDINATOR Primary Care Provider Source Comments [facility] [employer],non-owned Affiliates and Associated Physician Practices is amultiple site organization consisting of ambulatory clinics and hospital sitesin [place], [place], [place] and [place]. This disclosure is being madepursuant to the Care Everywhere program and may not contain all information available regarding this patient. Last updated 18.[facility] [employer] Allergies No known active allergies Medications * [...] 36.8 C (98.2 F) 07/01/2021 1:01 PM WATER AEROBICS INSTRUCTOR Respiratory Rate - - Oxygen Saturation - [...] age to complete this topic Care Teams Db2 Developer Relationship Specialty Start Date End Date Tamanna Reza, HEPATOLOGIST-TRANSCRIPTION COORDINATOR [address] [place] [address] PCP - General Nurse Practitioner 05/19/21
--- OUTSIDE RECORDS SUMMARY | 2024-10-11 00:17 | XMS_ITS | Encounter Summary ---
Author Organization [facility] Address [address] [place] [address] Care Team Providers Care Diamond Die Polisher Name Role Phone Tamanna Reza Primary Care Provider [phone] Encounter Details Date Type Department Care Team (Late st Contact Info) Description 06/03/2024 Arlettiet Message Enc [facility] Family Medicine - [place] [address] [facility], [address] [place] [phone] [place] [address] [address] Medication and kidney stones Social History Tobacco [...] documented as of this encounter Care Teams Diamond Die Polisher Relationship Specialty Start Date End Date Tamanna Reza APNP [address] [place] [address] PCP - General NURSE PRACTITIONER 04/28/21 documented as of this encounter
--- OUTSIDE RECORDS SUMMARY | 2024-10-11 00:17 | XMS_ITS | Encounter Summary ---
Author Organization [facility] Address [address] [place] [address] Care Team Providers Care Mobile Sales Expert Name Role Phone Tamanna Reza BILL Primary Care Provider [phone] Encounter Details Date Type Department Care Team (Late st Contact Info) Description 05/29/2024 Cooledge Lightingt Message Enc [facility] Family Medicine - [place] [address] [facility], [address] [place] [address] [place] [address] [address] Appt today Social History Tobacco Use Types [...] Patient is needing a refill on Qsymia JOINER documented in this encounter Plan of Treatment Not on file documented as of this encounter Visit Diagnoses Diagnosis Class 2 severe obesity due to excess calories with serious comorbidity and body mass index (BMI) of 39.0 to 39.9 in adult (CMS/[facility]) documented in this encounter Additional Health Concerns Assessment Noted Time PHQ-9 Depression Total Score: 10 024 8:32 AM CDT documented as of this encounter Care Teams Mobile Sales Expert Relationship Specialty Start Date End Date Tamanna Reza APNP [address] [place] [address] PCP - General NURSE PRACTITIONER 04/28/21 documented as of this encounter
--- OUTSIDE RECORDS SUMMARY | 2024-10-11 00:17 | XMS_ITS | Encounter Summary ---
Author Organization [facility] Address [address] [place] [address] Care Team Providers Care Exhibit Carpenter Name Role Phone Tamanna Reza BILL Primary Care Provider [phone] Encounter Details Date Type Department Care Team (Late st Contact Info) Description 03/21/2024 UQM Technologiest Message Enc [facility] Family Medicine - [place] [address] [facility], [address] [place] [address] [place] [address] [place] [address] Qsymia Social History Tobacco Use Types Packs/Day [...] documented as of this encounter Care Teams Exhibit Carpenter Relationship Specialty Start Date End Date Tamanna Reza APNP [address] [place] [address] PCP - General NURSE PRACTITIONER 04/28/21 documented as of this encounter
--- OUTSIDE RECORDS SUMMARY | 2024-10-11 00:17 | XMS_ITS | Encounter Summary ---
Author Organization [facility] Address [address] [place] [address] Care Team Providers Care Social Sciences Chair Name Role Phone Tamanna Reza Primary Care Provider [phone] Encounter Details Date Type Department Care Team (Late st Contact Info) Description 04/16/2024 flikdatet Message Enc [facility] Family Medicine - [place] [address] [facility], [address] [place] [address] [place] [address] [address] Qysmia Social History Tobacco Use Types Packs/Day [...] documented as of this encounter Care Teams Social Sciences Chair Relationship Specialty Start Date End Date Tamanna Reza APNP [address] [place] [address] PCP - General NURSE PRACTITIONER 04/28/21 documented as of this encounter
--- NOTE | 2024-10-11 06:11 | WPDHPUPDATE1 ---
History and Physical Update Update Date/Time: 10/11/24 06:11 History and Physical has been reviewed, including an updated exam of the patient. There are NO changes in the patient's condition. Risks, benefits, and alternatives have been discussed and questions answered. Patient agrees to proceed with procedure.
[2024-10-11 11:26] VITALS: BMI 33.0
[2024-10-11] MEDS: LACTATED RINGERS 1,000 ML 30 ML IV CONT (12:00)
[2024-10-11] MEDS: ACETAMINOPHEN 500 MG TABLET 1000 MG PO (12:08)
--- NOTE | 2024-10-11 12:09 | WPDANESEPPF ---
Anes - Initial Pre Proc Eval Procedure: Operation Date: 10/11/24 13:00 Proposed Procedures p Suction Dilation and Curettage - Alan Alex MD Date/Time: 10/11/24 12:09 Surgeon: Alan Alex MD Pre Op Diagnosis: missed AB Patient Data Age: 39 Gender: F Height: 1.63 m Weight: 87.3 kg Allergies Allergy/AdvReac Type Severity Reaction Status Date / Time iodine Allergy Unknown Rash Verified 10/11/24 11:26 Home Medications ?Medication ?Instructions ?Recorded ?Confirmed ?Type buspirone 30 mg tablet 20 mg PO TID 10/08/24 10/08/24 History buspirone 5 mg tablet 5 mg PO TID 10/08/24 10/08/24 History hydroxyzine HCl 25 mg tablet 25 mg PO HS 10/08/24 10/08/24 History sertraline 100 mg tablet 100 mg PO HS 10/08/24 10/08/24 History spironolactone 100 mg tablet 100 mg PO HS 10/08/24 10/08/24 History (Aldactone) hydrocodone 5 mg-acetaminophen 325 1 tablet PO Q4H PRN pain #14 tabs 10/11/24 Rx mg tablet Patient hx anesthesia problems: none Family hx anesthesia problems: none Results Review: All pre-operative results and documents have been reviewed as part of the pre-operative evaluation. [facility] Past Medical History Medical History Morbid obesity Family History Family History Father Family history of obesity Social History Social History Smoking status: Former smoker Tobacco type: e-cigarettes/vaping Second hand tobacco smoke exposure: No Smoking end date: 07/24/12 Alcohol intake: former Alcohol use details: socially Substance use: former Substance use type: marijuana Living arrangements: with family Spiritual care concerns: No Anes - Eval Final PreProcedure Day of Procedure 10/11/24 12:09 Patient weight: obese Heart: regular rate and rhythm Lungs: clear to auscultation Airway: Mallampati scale class II Neurological: alert and oriented Last oral intake: >/= 8 hours ASA classification: II Emergent: no Anesthetic plan: proceed Anesthesia type and monitoring: general GIVS and standard monitoring Results Review: All pre-operative results and documents have been reviewed as part of the pre-operative evaluation. Informed Consent: The patient's anesthetic plan and its attendant risks and benefits were discussed with the patient/family/POA. Questions were solicited and answers provided to the satisfaction of the patient/family/POA.
[2024-10-11] MEDS: LIDOCAINE 1% LOCAL INJ 10 ML VIAL INFILTRATE (13:36)
[2024-10-11] MEDS: KETOROLAC 15 MG/ML VIAL (*BKC) IV PUSH (13:49)
--- NOTE | 2024-10-11 13:55 | W.PM.PROC2 ---
Procedure Note - Detailed Date of Procedure 10/11/24 Pre-op Diagnosis missed AB Post-op Diagnosis Same Procedure Performed Suction dilatation curettage Surgeon Alan Alex MD Anesthesia General and Local Indications 39-year-old multiparous patient for suction D&C secondary to missed A/B Findings Tissue consistent with products of conception. Uterus sounded to 9 Description of Procedure Patient was prepped draped in normal sterile fashion placed in dorsal lithotomy position. Excellent IV sedation weighted speculum placed posterior fornix vagina. Anterior lip of cervix grasped with single-tooth tenaculum. 2.5cc % xylocaine anesthesia placed at 2 4, 10 cervix. Uterus sounded to 9cm. Serial dilatation fragmented dilators performed followed passes the 9. Suction curette moderate amount of placental tissue was removed the instruments withdrawn blood loss estimated 5cc patient went to recovery in satisfactory condition all sponge, needle, instrument counts were correct. Estimated Blood Loss 25 Drains No Packing No Pathology Yes Complications No immediate complications Condition Stable Disposition PACU
[2024-10-11 13:57] VITALS: BP 90/57; PULSE 59; RESP 10; TEMP 36.3; O2SAT 100
[2024-10-11 14:10] VITALS: BP 96/54; PULSE 57; RESP 10; O2SAT 100
[2024-10-11 14:20] VITALS: BP 116/79; PULSE 76; RESP 16; O2SAT 100
[2024-10-11 14:35] VITALS: BP 110/86; PULSE 79; O2SAT 100
[2024-10-11 14:42] VITALS: BP 116/77; PULSE 61; RESP 16
[2024-10-11 15:12] VITALS: BP 112/65; PULSE 70; RESP 16
== END 2024-10-11 15:12 | disposition home or self-care (01) ==
PROVIDERS: PCP Registered Nurse; Visit Provider Obstetrics & Gynecology
PROC: (CPT 59820; principal; 2024-10-11 13:00)
DX: O02.1 Missed abortion (principal)
CPT/HCPCS: 59820; 88305; A9270; J1885; J2003; J2250; J2704; J3010; J7120

== ENCOUNTER 2025-02-22 16:13 | Emergency (ER) | payer BC, SELFPAY ==
--- NOTE | ~2025-02-22 | XR_ITS ---
EXAM: XR abdomen/kub 1V DATE: 02/22/2025 17:04 HISTORY: Left flank pain 3-4 days hx kidney stones . COMPARISON: 02/25/2013; CT abdomen pelvis 05/31/2024. FINDINGS: Clear lung bases. Paucity of small bowel gas. Normal large bowel gas pattern. Enlarged tayler er. No abnormal abdominal calcification. Regional bones and soft tissues normal for age. IMPRESSION: No abnormal abdominal pelvic calcifications. Hepatomegaly. Paucity of small bowel gas whi ch limits evaluation for obstruction/ileus. Reviewed, dictated and finalized at location K. IMPRESSION: No abnormal abdominal pelvic calcifications. Hepatomegaly. Paucity of small bowel gas which limits evaluation for obstruction/ileus.
[2025-02-22 16:24] VITALS: BP 137/71; PULSE 78; RESP 16; TEMP 36.8; O2SAT 100
--- NOTE | 2025-02-22 16:47 | ED.GENADULT ---
HPI - General Adult General Chief complaint: Urogenital-Female Stated complaint: UTI Time Seen by Provider: 02/22/25 16:47 Source: patient Mode of arrival: ambulatory Limitations: no limitations History of Present Illness HPI narrative: 39-year-old female patient presents to the [facility] with complaints of left lower back pain and left pelvic pain and left flank pain for the past 2-3 days. Patient states that she is not really having any pain with urination but more feels more like spasms. Patient states that this has been intermittent for the past week but has gotten it pretty consistent the last 3 days. Patient states she did have some kidney stones in May of 2024. Patient states they were able to pass on their. Patient states she just overall has not been feeling well and feeling very fatigued, body aches slight chills denies any fevers that she is aware of. Denies chest pain or shortness of breath. Patient states she had what she thought was a miscarriage in September of 2024. Patient states she had a D&C done and that was unsuccessful and [facility] and received an . Patient states she never did have a follow-up after her . Patient states her symptoms today are very similar from when she had kidney stones Related Data Home Medications ?Medication ?Instructions ?Recorded ?Confirmed ?Last Taken ?Type buspirone 30 mg tablet 20 mg PO TID 10/08/24 10/08/24 10/08/24 History hydroxyzine HCl 25 mg tablet 25 mg PO HS 10/08/24 10/08/24 10/07/24 History sertraline 100 mg tablet 100 mg PO HS 10/08/24 10/08/24 10/07/24 History norgestimate-ethinyl estradiol tablet 02/22/25 Unknown History 0.18mg/0.215mg/0.25mg-0.035mg(28)tablet (Tri-Linyah) Allergies Allergy/AdvReac Type Severity Reaction Status Date / Time iodine Allergy Unknown Rash Verified 02/22/25 16:51 Review of Systems Review of Systems: CONSTITUTIONAL: Denies fever, chills, or sweats. EYES: Denies visual changes, redness, or discharge. ENT: Denies rhinorrhea, congestion, sore throat, or otalgia. CARDIOVASCULAR: Denies chest pain, palpitations, or edema. RESPIRATORY: Denies cough or dyspnea. GASTROINTESTINAL: Denies abdominal pain, nausea, vomiting, or diarrhea. GENITOURINARY: Positive dysuria, denies gross hematuria. SKIN: Denies rash or itching. MUSCULOSKELETAL: Positive left-sided flank and back pain, denies joint pain, or myalgia. NEUROLOGIC: Denies headache, numbness, or weakness. PSYCHIATRIC: Denies anxiety or depression. [facility] Past Medical History Medical History (Updated 02/22/25 @ 17:52 by PORSHA Kessler) Nephrolithiasis Missed Morbid obesity Family History Family History Father Family history of obesity Social History Social History Smoking status: Former smoker Tobacco type: e-cigarettes/vaping Second hand tobacco smoke exposure: No Smoking end date: 07/24/12 Alcohol intake: former Alcohol use details: socially Substance use: former Substance use type: marijuana Living arrangements: with family Spiritual care concerns: No Comments At the time of my signature I agree with nursing past medical history, surgical, social, and family history. There is no relevant family history pertinent to the presenting complaint. Exam Narrative: GENERAL: Well-appearing, well-nourished, and in no acute distress. HEAD: Normocephalic, atraumatic. EYES: PERRLA and EOMI. ENT: Nares clear, no rhinorrhea or epistaxis. Mucous membranes moist. NECK: Supple. No lymphadenopathy CHEST: Clear to auscultation. No respiratory distress. HEART: Regular rate and rhythm. No murmur heard. Normal peripheral pulses. ABDOMEN: Soft, nontender, nondistended, normal active bowel sounds. Patient has left lower pelvic pain on palpation and slight left CVA tenderness on percussion. EXTREMITIES: Normal range of motion. No edema. SKIN: Warm, dry, no rash. NEURO: No focal deficits. Alert and oriented x3. Course Course Level of Care: Express Care Visit Reevaluation(s) Reevaluation #1: Re-evaluated patient notified her that her urine dip was unremarkable for a urinary tract infection however we are going to send off to lab for culture. Discussed with her that her KUB did not identify any obvious kidney stones however and did note that her liver is slightly enlarged. Discussed with patient that she needs to call her primary doctor Monday and discuss about possibly getting a CT scan or possibly additional blood work to follow up on this large liver. Discussed with patient that KUB is not the best way to determine if she she has a kidney stone and therefore again I would recommend that she follow-up with her primary doctor to possibly taking an outpatient CT to further investigate this. Discussed with patient to make sure she is drinking plenty of water to try and filter out or move any stones that could be present. Discussed with patient's about the causes of a possible enlarged liver 1 of them being possibly a virus called mono. Discussed with patient we can test for that today however there is no guarantee that this could be positive most likely she would need some type of blood test. Patient states she would like to be tested anyway. Discussed with patient that ultimately she will need to follow up with her doctor for further evaluation. Date: 02/22/25 Time: 17:48 Vital Signs Vital signs: Vital Signs Temperature 36.8 C 02/22/25 16:24 Pulse Rate 78 02/22/25 16:24 Respiratory Rate 16 02/22/25 16:24 Blood Pressure 137/71 02/22/25 16:24 Pulse Oximetry 100 02/22/25 16:24 Oxygen Delivery Room Air 02/22/25 16:24 Temperature 36.8 C 02/22/25 16:24 Pulse Rate 78 02/22/25 16:24 Respiratory Rate 16 02/22/25 16:24 Blood Pressure 137/71 02/22/25 16:24 Pulse Oximetry 100 02/22/25 16:24 Oxygen Delivery Room Air 02/22/25 16:24 Vital signs reviewed. Medical Decision Making MDM Narrative Medical decision making narrative: Plan of care for patient is to obtain a KUB to assess for possible kidney stones. Patient's urine dip was pretty unremarkable for UTI. Differential Diagnosis Differential Diagnosis: Differential diagnosis: Uncomplicated lower UTI, uncomplicated UTI, pyelonephritis Vital Signs Vital Signs: Vital Signs Temperature 36.8 C 02/22/25 16:24 Pulse Rate 78 02/22/25 16:24 Respiratory Rate 16 02/22/25 16:24 Blood Pressure 137/71 02/22/25 16:24 Pulse Oximetry 100 02/22/25 16:24 Oxygen Delivery Room Air 02/22/25 16:24 Temperature 36.8 C 02/22/25 16:24 Pulse Rate 78 02/22/25 16:24 Respiratory Rate 16 02/22/25 16:24 Blood Pressure 137/71 02/22/25 16:24 Pulse Oximetry 100 02/22/25 16:24 Oxygen Delivery Room Air 02/22/25 16:24 Vital signs reviewed. Lab Data Labs: Lab Results 02/22/25 Range/Units 16:53 POC Urine Color Yellow POC Urine Clarity Clear POC Urine pH 6.0 POC Ur Specif Donalds 1.020 POC Urine Protein Negative (Negative) POC Ur Glucose (UA) Negative (Negative) POC Urine Ketones Trace (Negative) POC Urine Blood Trace (Negative) POC Urine Nitrite Negative (Negative) POC Urine Bilirubin Negative (Negative) POC Urine Urobilinogen 0.2 POC U Leukocyte Esteras Negative (Negative) POC Urine HCG, Qual Negative (Negative) Imaging Data Radiologist's impression: [address] [place] [address] XRay Report Signed Patient: Candy Dudley : 1985 MR#: [id number] Age: 39 Acct:[id number] Loc: [facility] ADM Date: 02/22/25Attending Dr: Ordering Physician: Rose Mary Keenan APRN Date of Service: 02/22/25 Procedure(s): XR abdomen/kub 1V Accession Number(s): [id number] cc: Libia, Tamanna THIRD HELPER; Rose Mary Keenan CERTIFIED MIDWIFE~ EXAM: XR abdomen/kub 1V DATE: 02/22/2025 17:04 HISTORY: Left flank pain 3-4 days hx kidney stones . COMPARISON: 02/25/2013; CT abdomen pelvis 05/31/2024. FINDINGS: Clear lung bases. Paucity of small bowel gas. Normal large bowel gas pattern. Enlarged liver. No abnormal abdominal calcification. Regional bones and soft tissues normal for age. IMPRESSION: No abnormal abdominal pelvic calcifications. Hepatomegaly. Paucity of small bowel gas which limits evaluation for obstruction/ileus. Reviewed, dictated and finalized at location K. Please be advised this is a medical document. It is intended for [id number] communication. It is written in medical language and may contain unfamiliar abbreviations or verbiage. Medical documents are intended to carry relevant information, facts as evident, and the clinical opinion of the practitioner at the time of the encounter. This report may have been done utilizing a voice recognition system. Attempts have been made to correct errors. However, there may be uncorrected grammatical, spelling, and recognition errors present. The file time of this note does not necessarily represent the time of service. Dictated By: Иван Clay MD 02/22/25 1727 Signed By: <Electronically signed by Иван Clay MD in OV> Critical Care Time Critical Care Time Critical Care Time: No Discharge Plan Discharge Clinical Impression: Acute left flank pain, Hepatomegaly Patient Disposition: Home Condition: Stable Instructions: Antibiotic Form, Flank Pain (ED) Additional Instructions: We will call you with results of your urine culture and the neck is 2-3 days. Please call your primary doctor on Monday to request an outpatient CT to look for any kidney stones and to investigate the enlarged liver that was found on the x-ray today. Continue to drink plenty of water may want to try some lemon in the water to help detoxify the liver. If your symptoms get it worse including fevers, nausea, vomiting or diarrhea, chest pain or shortness of breath please go to the ER for further evaluation. Patient Language: Citizen Of [place] Prescriptions: No Action norgestimate-ethinyl estradiol [Tri-Linyah] 0.18/0.215/0.25 mg-0.035mg (28) tablet hydroxyzine HCl 25 mg tablet 25 mg PO HS sertraline 100 mg tablet 100 mg PO HS buspirone 30 mg tablet 20 mg PO TID Follow-up/Referrals: Libia,COLIN Nolen [Primary Care Provider] - Time of Disposition: 18:01
[2025-02-22 16:56] LABS: BEDSIDEPREGUCG Negative (Negative); EDUAAPPEAR Clear; EDUABILI Negative (Negative); EDUABLOOD Trace (Negative); EDUACOLOR1 Yellow; EDUAGLUCOSE Negative (Negative); EDUAKETONE Trace (Negative); EDUALEUKO Negative (Negative); EDUANITRATE Negative (Negative); EDUAPH 6.0; EDUAPROTEIN Negative (Negative); EDUASPGRAVITY 1.020; EDUAUROBILI 0.2
[2025-02-22 18:04] LABS: EDMONONEGPOS Negative (Negative)
== END 2025-02-22 18:20 | disposition home or self-care (01) ==
PROVIDERS: Emergency Provider Nurse Practitioner Family; PCP Registered Nurse
DX: R10.9 Unspecified abdominal pain (principal); R16.0 Hepatomegaly, not elsewhere classified; Z87.891 Personal history of nicotine dependence; E66.01 Morbid (severe) obesity due to excess calories
CPT/HCPCS: 36416; 74018; 81003; 81025; 86308; 87086; 99213; G0463

== ENCOUNTER 2025-04-09 09:37 | Emergency (ER) | payer BC, SELFPAY ==
--- NOTE | 2025-04-09 09:40 | ED.URI ---
HPI - URI/Sore Throat General Chief Complaint: Ear Stated Complaint: Sinus Time Seen by Provider: 04/09/25 09:40 Source: patient Mode of arrival: ambulatory Limitations: no limitations History of Present Illness HPI Narrative: Patient is a 39-year-old female who presents with 4 weeks of intermittent in productive cough, sinus congestion, sinus pressure, ear pain pain that all continues to worsen. Patient has tried [id number] medication with no relief. Denies any fever, chills, nausea, vomiting, diarrhea. Related Data Home Medications ?Medication ?Instructions ?Recorded ?Confirmed ?Last Taken ?Type buspirone 30 mg tablet 20 mg PO TID 10/08/24 10/08/24 10/08/24 History hydroxyzine HCl 25 mg tablet 25 mg PO HS 10/08/24 10/08/24 10/07/24 History sertraline 100 mg tablet 100 mg PO HS 10/08/24 10/08/24 10/07/24 History Allergies Allergy/AdvReac Type Severity Reaction Status Date / Time iodine Allergy Unknown Rash Verified 04/09/25 09:54 Review of Systems Review of Systems: All systems reviewed & are unremarkable except as noted in HPI and below Constitutional: Constitutional: Denies chills, Denies fatigue, Denies fever(s), Denies headache(s), Denies malaise and Denies weakness Eyes: Eyes: Denies blurry vision, Denies itchy eyes and Denies loss of vision ENT: Reports otalgia, Denies headache(s), Reports nasal congestion, Reports sinus pain, Reports sinus pressure and Denies sore throat Cardiovascular: Cardiovascular: Denies chest pain, Denies irregular heart rhythm and Denies dyspnea Respiratory: Respiratory: Reports cough and Denies dyspnea Gastrointestinal: Gastrointestinal: Denies abdominal pain, Denies diarrhea, Denies nausea and Denies vomiting Musculoskeletal: Musculoskeletal: Denies back pain, Denies myalgias and Denies arthralgias Integumentary/Breasts: Skin/Breast: Denies pruritus and Denies rash Neurologic: Denies headache(s), Denies loss of vision and Denies weakness Psychiatric: Psychiatric: Reports no additional psychiatric complaints Endocrine: Endocrine: Denies fatigue Allergic/Immunologic: Allergic/Immunologic: Denies itchy eyes PMFSH Past Medical History Medical History Nephrolithiasis Missed Morbid obesity Family History Family History Father Family history of obesity Social History Social History Smoking status: Former smoker Tobacco type: e-cigarettes/vaping Second hand tobacco smoke exposure: No Smoking end date: 07/24/12 Alcohol intake: former Alcohol use details: socially Substance use: former Substance use type: marijuana Living arrangements: with family Spiritual care concerns: No Comments At time of signature, agree with nursing past medical, surgical, social and family history. There is no relevant family history pertinent to the presenting complaint. Exam Const: General: cooperative, healthy appearing, comfortable, no acute distress and well nourished Nutritional Appearance: well nourished Orientation/consciousness: patient oriented x3 Limitations: no limitations HENMT: Head: normal to inspection, normocephalic and atraumatic Ears: hearing grossly normal bilaterally, external ears normal, TM's normal bilaterally, EAC's normal and no periauricular adenopathy Face/Nose/Sinus: Normal external nose present, Abnormal mucous membranes and turbinates present erythematous bilateral and diffuse, normal facial exam, sinuses nontender and face symmetric Face and sinus: normal facial exam, sinuses nontender and face symmetric Mouth: Yes Normal oral and palatal mucosa present, Yes lip normal, Yes tongue normal, Yes Normal salivary glands and ducts present, Yes oropharynx normal and Yes moist mucous membranes Teeth and gingiva: dentition normal Throat: posterior oropharynx normal, tonsils normal and uvula midline Eyes: General: appearance normal, both eyes and all related structures Alignment and Position: alignment normal and position normal Periorbital: periorbital findings normal Eyelids: eyelids normal Pupils: Equal, round and reactive pupils present Neck: Neck: normal visual inspection, full ROM, no lymphadenopathy and supple Chest: Chest palpation & inspection: normal inspection of the chest and normal palpation of entire chest wall Resp: Effort & Inspection: normal respiratory effort, able to speak in complete sentences and Actively coughing wet Auscultation: clear to auscultation bilaterally, no crackles, no rales, no rhonchi and no wheezes Cardio: Rate: regular rate Rhythm: regular rhythm Heart sounds: S1 normal heart sound present and S2 normal heart sound present GI: Inspection: normal to inspection Skin: General skin exam: normal color and no rashes or lesions noted Neuro: General: patient oriented x3 and moves all extremities Cranial nerves: Yes Equal, round and reactive pupils present Speech: normal speech Gait exam (Neuro): Normal gait present Extrem: General: normal to inspection, full ROM and no edema Psych: Appearance: grossly normal and well kempt Mental Status: mental status grossly normal Speech and movement: Normal speech and movement present Affect: normal affect Attitude: cooperative Thought process: Normal thought process present Course Course Emergency Course: Discharge instructions reviewed with patient, as well as provided in writing per nursing staff. The instructions also include specific and strict return/GO TO THE ER as well as f/u information. All questions have been answered, and the patient deny any further questions with discharge and discharge plan. Portions of this record may have been created with voice recognition software Level of Care: Express Care Visit Vital Signs Vital signs: Reviewed MDM - URI/Sore Throat MDM Narrative Medical decision making narrative: Pt well hydrated appearing, in no respiratory distress, hemodynamically stable. Recommend supportive care. The patient is stable at time of discharge the clinical impression was discussed and the patient was given the opportunity to ask questions, which were addressed as completely as possible given the information available at present. Anticipatory guidance and return to care precautions were discussed and the importance of primary care follow-up was stressed and encouraged. The patient voiced understanding of the plan, indications to return, and the need for follow-up. Exam findings show no acute concerns or changes Patient is appropriate for outpatient treatment and follow-up. Differential diagnosis considered: Hodges virus, strep pharyngitis, allergic rhinitis, upper respiratory tract infection, sinusitis, rhinosinusitis, nasopharyngitis. viral pharyngitis, otitis media, otitis externa, otitis effusion, foreign body, cerumen impaction, viral syndrome, and influenza.? Medical Records Attestation: I reviewed the patient's medical records. Discharge Plan Discharge Clinical Impression: Acute bacterial sinusitis Cough Qualifiers: Cough type: acute Qualified Code(s): R05.1 - Acute cough Patient Disposition: Home Condition: Stable Instructions: Sinusitis (ED) Additional Instructions: Take antibiotic as prescribed. Take steroids in the morning with food. Use Tessalon Perles as needed for cough. Other symptomatic treatments include: -Alternate Tylenol and Motrin per package directions for fever or pain: Tylenol 650-1000mg by mouth every 4-6 hours. Do not exceed 4000mg in 24 hours. Advil (Ibuprofen) 600 mg by mouth every 6 hours. Do not exceed 2400mg in 24 hours. 8 AM: Tylenol 11 AM: Ibuprofen 2 PM: Tylenol 5 PM: Ibuprofen 8 PM: Tylenol 11 PM: Ibuprofen 2 AM: Tylenol 5 AM: Ibuprofen -Antihistamine medication such as Benadryl at night and Zyrtec/Claritin/Ale during the day can help improve symptoms. -Use Flonase twice a day for 5 days then daily to help reduce the inflammation and dry up your sinuses. -You can also use Sudafed or Mucinex. Be sure to drink plenty of water with these medications at least 8 ounces with every dose and it is important to drink 8 to 10 glasses of water per day. Water is a natural decongestant -Eat and drink things that are easy to swallow, like tea or soup, or popsicles. -Oral rinses such as: Salt water gargles and/or may use topical anesthetic (eg. Chloraseptic spray) or lozenges to relieve dryness or throat pain). -Frequent hand washing or hand customer sales representative is one of the best ways to prevent spread of infection. -Using a vaporizer or humidifier at night will also help thin secretions and help with coughing up phlegm. Call your Primary Care Doctor and make a follow-up appointment in 3 days. If your cough worsens, you develop a fever greater than 103, you develop shaking chills, a fast heartbeat, trouble breathing and/or feel you are are breathing much faster than usual, call your Primary Care Doctor or go to the ER. Patient Language: Latvian Prescriptions: New benzonatate 100 mg capsule 100 mg PO BID PRN (Reason: cough) Qty: 14 0RF amoxicillin-pot clavulanate 875-125 mg tablet 1 tablet PO Q12H 10 Days Qty: 20 0RF prednisone 20 mg tablet 40 mg PO DAILY 5 Days Qty: 10 0RF fluticasone propionate [Flonase Allergy Relief] 50 mcg/actuation spray,suspension 1 spray intranasal DAILY Qty: 16 0RF Rx Instructions: administer into each nostril No Action hydroxyzine HCl 25 mg tablet 25 mg PO HS sertraline 100 mg tablet 100 mg PO HS buspirone 30 mg tablet 20 mg PO TID norgestimate-ethinyl estradiol [Tri-Linyah] 0.18/0.215/0.25 mg-0.035mg (28) tablet 1 tablet PO DAILY Qty: 84 1RF Follow-up/Referrals: Libia,COLIN Nolen [Primary Care Provider] - 3 Days Time of Disposition: 10:16
[2025-04-09 09:47] VITALS: BP 109/55; PULSE 72; RESP 18; TEMP 36.1; O2SAT 98
== END 2025-04-09 10:20 | disposition home or self-care (01) ==
PROVIDERS: Emergency Provider Nurse Practitioner Family; PCP Registered Nurse
DX: J01.90 Acute sinusitis, unspecified (principal); R05.1 Acute cough; E66.01 Morbid (severe) obesity due to excess calories; Z68.32 Body mass index [BMI] 32.0-32.9, adult; Z87.891 Personal history of nicotine dependence
CPT/HCPCS: 99213; G0463